=== PATIENT | female | born 1980 | race Caucasian/White ===

== ENCOUNTER 2017-03-18 12:09 | Emergency (ER) | payer OTHER ==
[~2017-03-18 12:09] MED LIST: AMOXICILLIN500 MG PO; ANAPROX DS550 MG PO; AUGMENTIN 875 M1 TAB PO; AUGMENTIN 875875 MG PO; BENADRYL25 MG PO; CIPRO250 MG PO; CLARITIN10 MG PO; COLACE50 MG PO; CORTISPORIN 1%-10 M1 OT; FLONASE 0.05% 121 EA NAS; GLYCOLAX17 GM/DOSE PO; GOOD SENSE ALLE10 MG PO; MACROBID100 M1 PO; MOTRIN800 MG PO; PANTOPRAZOLE SOD DR; PREDNISONE10 MG PO; PYRIDIUM200 MG PO; SEA SOFT MIST 445 ML NAS; SUBUTEX8 M1 PO; SUBUTEX8 M1 SL; TYLENOL325 M1 PO; TYLENOL500 MG PO; ZOFRAN ODT4 MG SL; ZOFRAN4 MG PO; ZYRTEC10 M2 PO
[2017-03-18] MEDS ORDERED: LATU20TA PO (12:10)
[2017-03-18 12:39] LABS: BASO # 0.1 10*3/uL (0.0-0.1); BASO % 0.6 % (0.0-1.0); EOS # 0.3 10*3/uL (0.0-0.4); EOS % 3.9 % (1.0-4.0); HEMATOCRIT 40.9 % (37.0-47.0); HEMOGLOBIN 13.7 g/dl (12.0-16.0); LYMPH # 2.4 10*3/uL (1.3-4.4); LYMPH % 29.6 % (27.0-41.0); MEAN CELL VOLUME 88.9 fl (81.0-99.0); MEAN CORPUSCULAR HGB 29.8 pg (27.0-31.0); MEAN CORPUSCULAR HGB CONC 33.5 g/dl (33.0-37.0); MEAN PLATELET VOLUME 10.1 fl (9.6-12.3); MONO # 0.5 10*3/uL (0.1-1.0); MONO % 6.3 % (3.0-9.0); NEUT # 4.9 10*3/uL (2.3-7.9); NEUT % 59.4 % (47.0-73.0); PLATELET COUNT AUTOMATED 227 10*3/uL (130-400); RED CELL DISTRI WIDTH 12.7 % (0-14.5); WHITE BLOOD COUNT 8.2 10*3/uL (4.8-10.8)
[2017-03-18 13:01] LABS: ALBUMIN 3.5 gm/dl (3.1-4.5); ALKALINE PHOSPHATASE 66 U/L (45-117); BILIRUBIN, TOTAL 0.2 mg/dl (0.2-1.0); BUN 12 mg/dl (7-24); CARBON DIOXIDE 27 mmol/L (21-32); CHLORIDE 109 mmol/L (98-107); EST GLOM FILT AFRICAN AMERICAN > 60 ml/min; GLUCOSE 99 mg/dL (65-99); SGOT/AST 16 IU/L (3-35); SGPT/ALT 20 U/L (12-78); SODIUM 144 mmol/L (136-145); TOTAL PROTEIN 6.8 gm/dL (6.4-8.2)
[2017-03-18] MEDS ORDERED: PREDNISONE10 MG PO (13:45)
[2017-03-18] MEDS ORDERED: VIBRAMYCIN100 MG PO (13:45)
== END 2017-03-18 13:49 | disposition home or self-care (01) ==
LOC: ED 12:09
PROVIDERS: Registered Nurse
DX: G43.909 Migraine, unspecified, not intractable, without status migrainosus (principal); J20.9 Acute bronchitis, unspecified; F17.210 Nicotine dependence, cigarettes, uncomplicated; Z88.1 Allergy status to other antibiotic agents; Z79.899 Other long term (current) drug therapy; Z88.8 Allergy status to other drugs, medicaments and biological substances

== ENCOUNTER 2019-07-26 12:59 | Emergency (ER) | payer OTHER ==
[~2019-07-26] VITALS: Ht 157.4 cm; Wt 72.6 kg
[~2019-07-26 12:59] MED LIST changes: +LATU20TA PO; +VIBRAMYCIN100 MG PO
[2019-07-26 14:17] LABS: HEMATOCRIT 43.4 % (37.0-47.0); HEMOGLOBIN 14.4 g/dl (12.0-16.0); MEAN CELL VOLUME 92.1 fl (81.0-99.0); MEAN CORPUSCULAR HGB 30.6 pg (27.0-31.0); MEAN CORPUSCULAR HGB CONC 33.2 g/dl (33.0-37.0); MEAN PLATELET VOLUME 9.9 fl (9.6-12.3); PLATELET COUNT AUTOMATED 278 10*3/uL (130-400); RED BLOOD COUNT 4.71 10*6/uL (4.10-5.10); RED CELL DISTRI WIDTH 12.4 % (0-14.5); WHITE BLOOD COUNT 6.9 10*3/uL (4.8-10.8)
[2019-07-26 14:31] LABS: ALBUMIN 3.3 gm/dl (3.1-4.5); ALKALINE PHOSPHATASE 61 U/L (45-117); BUN 6 mg/dl (7-24); CHLORIDE 109 mmol/L (98-107); CREATININE 0.76 mg/dL (0.55-1.02); POTASSIUM 3.5 mmol/L (3.5-5.1); SGOT/AST 14 IU/L (3-35); SGPT/ALT 18 U/L (12-78); SODIUM 143 mmol/L (136-145); TOTAL PROTEIN 6.8 gm/dL (6.4-8.2)
[2019-07-26 14:35] LABS: PLATELET SUFFICIENCY NORMAL (NORMAL); TOTAL CELLS COUNTED 100 #CELLS
[2019-07-26] MEDS ORDERED: CLINDAMYCIN HC300 MG PO (15:20)
== END 2019-07-26 15:46 | disposition home or self-care (01) ==
LOC: ED 12:59
PROVIDERS: Nurse Practitioner Family
DX: L02.414 Cutaneous abscess of left upper limb (principal); Z88.1 Allergy status to other antibiotic agents; Z88.2 Allergy status to sulfonamides; Z79.2 Long term (current) use of antibiotics; Z79.899 Other long term (current) drug therapy; Z90.49 Acquired absence of other specified parts of digestive tract

== ENCOUNTER 2020-09-27 14:18 | Emergency (ER) | payer OTHER ==
[~2020-09-27] VITALS: Wt 68.0 kg
[~2020-09-27 14:18] MED LIST changes: +CLINDAMYCIN HC300 MG PO
[2020-09-27] MEDS ORDERED: KENALOG 0.1%80 GM T (15:25)
== END 2020-09-27 15:18 | disposition home or self-care (01) ==
LOC: ED 14:18
DX: L25.9 Unspecified contact dermatitis, unspecified cause (principal); Z88.2 Allergy status to sulfonamides; Z88.8 Allergy status to other drugs, medicaments and biological substances

== ENCOUNTER 2022-03-04 20:17 | Emergency (ER) | payer OTHER ==
[~2022-03-04] VITALS: Ht 157.4 cm; Wt 90.3 kg
[~2022-03-04 20:17] MED LIST changes: +KENALOG 0.1%80 GM T
[2022-03-04 21:09] LABS: BASO # 0.1 10*3/uL (0.0-0.1); BASO % 0.4 % (0.0-1.0); EOS # 0.3 10*3/uL (0.0-0.4); EOS % 2.7 % (1.0-4.0); HEMATOCRIT 31.5 % (37.0-47.0); LYMPH # 2.7 10*3/uL (1.3-4.4); LYMPH % 22.6 % (27.0-41.0); MEAN CORPUSCULAR HGB 30.1 pg (27.0-31.0); MEAN PLATELET VOLUME 9.1 fl (9.6-12.3); MONO # 0.9 10*3/uL (0.1-1.0); MONO % 7.4 % (3.0-9.0); NEUT # 7.7 10*3/uL (2.3-7.9); NEUT % 65.1 % (47.0-73.0); NUCLEATED RED BLOOD CELL 0.3 % (0.0-0.0); PLATELET COUNT AUTOMATED 378 10*3/uL (130-400); RED BLOOD COUNT 3.46 10*6/uL (4.10-5.10); RED CELL DISTRI WIDTH 13.3 % (0-14.5); WHITE BLOOD COUNT 11.8 10*3/uL (4.8-10.8)
[2022-03-04 21:24] LABS: ALKALINE PHOSPHATASE 80 U/L (45-117); BUN 10 mg/dl (7-24); CHLORIDE 113 mmol/L (98-107); CREATININE 0.97 mg/dL (0.55-1.02); POTASSIUM 3.5 mmol/L (3.5-5.1); SGOT/AST 11 IU/L (3-35); SGPT/ALT 25 U/L (12-78); SODIUM 145 mmol/L (136-145); TOTAL PROTEIN 5.5 gm/dL (6.4-8.2)
[2022-03-04 23:08] LABS: BILIRUBIN Negative (Negative); BLOOD Negative (Negative); CLARITY Clear (Clear); COLOR Yellow (Yellow); GLUCOSE Negative (Negative); KETONE Negative (Negative); LEUKO ESTERASE Negative (Negative); NITRITE Negative (Negative)
[2022-03-04 23:15] LABS: EPITHELIAL CELLS 16-20
== END 2022-03-04 23:38 | disposition home or self-care (01) ==
LOC: ED 20:17
PROVIDERS: Physician Assistant
DX: O90.89 Other complications of the puerperium, not elsewhere classified (principal); R60.0 Localized edema; F17.200 Nicotine dependence, unspecified, uncomplicated; Z88.1 Allergy status to other antibiotic agents; Z90.49 Acquired absence of other specified parts of digestive tract

== ENCOUNTER 2025-09-10 08:55 | Inpatient (IN) | payer OTHER ==
[~2025-09-10] VITALS: Ht 160 cm; Wt 90.7 kg
[2025-09-10] VITALS (7 sets, daily range): BP systolic 89–177; BP diastolic 40–106
[2025-09-10] MEDS ORDERED: SODIUM CHLORIDE 0.9% 1,000 ML IV ONE ×3 (09:10→12:00)
[2025-09-10 09:42] LABS: BASO # 0.1 10*3/uL (0.0-0.1); BASO % 0.4 % (0.0-1.0); EOS # 0.2 10*3/uL (0.0-0.4); EOS % 1.6 % (1.0-4.0); MEAN CELL VOLUME 91.3 fl (81.0-99.0); MEAN CORPUSCULAR HGB 30.1 pg (27.0-31.0); MEAN PLATELET VOLUME 10.0 fl (9.6-12.3); MONO # 1.1 10*3/uL (0.1-1.0); MONO % 8.0 % (3.0-9.0); NEUT # 10.2 10*3/uL (2.3-7.9); NEUT % 71.3 % (47.0-73.0); NUCLEATED RED BLOOD CELL 0.0 % (0.0-0.0); NUCLEATED RED BLOOD CELL 0.0 10*3/uL (0.0-0.0); PLATELET COUNT AUTOMATED 273 10*3/uL (130-400); RED CELL DISTRI WIDTH 13.2 % (0-14.5)
[2025-09-10 10:07] LABS: BUN 33.0 mg/dl (9-23); SGPT/ALT 76.0 U/L (5-49)
[2025-09-10 11:08] LABS: BILIRUBIN Negative (Negative); BLOOD Negative (Negative); CLARITY Clear (Clear); COLOR Yellow (Yellow); KETONE Trace (Negative); LEUKO ESTERASE Trace (Negative); NITRITE Negative (Negative); PH 5.5 (4.5-8.0); SPECIFIC GRAVITY 1.015 (1.001-1.030); UROBILINOGEN 0.2 E.U./dl (0.0-1.0)
[2025-09-10 11:15] LABS: URINE AMPHETAMINES Positive (1000ng/ml); URINE BARBITURATES Negative (200ng/ml); URINE BENZODIAZEPINES Positive (200ng/ml); URINE CANNABINOIDS (THC) Negative (50ng/ml); URINE COCAINE Positive (300ng/ml); URINE METHADONE Positive (300ng/ml); URINE OPIATES Negative (300ng/ml); URINE PHENCYCLIDINE Negative (25ng/ml)
[2025-09-10 11:25] LABS: WBC 21-30 wbc/hpf (0-5)
[2025-09-10 11:26] LABS: BACTERIA 2+
[2025-09-10] MEDS ORDERED: diazePAM 10 MG/2 ML SYR IV ONE (12:00)
[2025-09-10] MEDS ORDERED: BISACODYL 10 MG SUPP R PRN (12:05)
[2025-09-10] MEDS ORDERED: ACETAMINOPHEN 650 MG SUPP R PRN (12:05)
[2025-09-10] MEDS ORDERED: ACETAMINOPHEN 325 MG TAB PO PRN (12:05)
[2025-09-10] MEDS ORDERED: BISACODYL 5 MG TAB PO PRN (12:05)
[2025-09-10] MEDS ORDERED: HEPARIN SODIUM 5,000 UNIT/ML VIAL SC SCH (14:00)
[2025-09-10] MEDS ORDERED: Bacitracin Zinc/Polymyxin B 15 GM TUBE T SCH (18:00)
[2025-09-11] VITALS: BP 94/46
[2025-09-11 04:00] VITALS: BP 93/52
[2025-09-11 05:47] LABS: BUN 26 mg/dl (9-23); FREE T4 1.10 ng/dl (0.89-1.76); SGPT/ALT 56 U/L (5-49)
[2025-09-11 06:00] VITALS: BP 98/53
[2025-09-11 06:32] LABS: BASO # 0.0 10*3/uL (0.0-0.1); BASO % 0.5 % (0.0-1.0); EOS # 0.3 10*3/uL (0.0-0.4); EOS % 3.2 % (1.0-4.0); MEAN CELL VOLUME 94.3 fl (81.0-99.0); MEAN CORPUSCULAR HGB 30.5 pg (27.0-31.0); MEAN PLATELET VOLUME 11.1 fl (9.6-12.3); MONO # 0.7 10*3/uL (0.1-1.0); MONO % 8.7 % (3.0-9.0); NEUT # 3.4 10*3/uL (2.3-7.9); NEUT % 43.9 % (47.0-73.0); NUCLEATED RED BLOOD CELL 0.0 % (0.0-0.0); NUCLEATED RED BLOOD CELL 0.0 10*3/uL (0.0-0.0); PLATELET COUNT AUTOMATED 199 10*3/uL (130-400); RED CELL DISTRI WIDTH 13.5 % (0-14.5)
[2025-09-11 06:59] LABS: VITAMIN D, 25-HYDROXY 48.1 ng/mL (30-100)
[2025-09-11 12:00] VITALS: BP 98/51
[2025-09-11] MEDS ORDERED: METHADONE10 MG/5 M1 PO ×2 (15:59→16:00)
[2025-09-11 16:00] VITALS: BP 119/60
[2025-09-11 20:00] VITALS: BP 115/59
[2025-09-11] MEDS ORDERED: METHADONE PO SCH (22:00)
[2025-09-11] MEDS ORDERED: MED. FROM HOME 1 EACH EA PO SCH (22:00)
[2025-09-12] VITALS: BP 114/46
[2025-09-12 04:00] VITALS: BP 121/63
[2025-09-12 06:15] LABS: BASO # 0.0 10*3/uL (0.0-0.1); BASO % 0.4 % (0.0-1.0); EOS # 0.2 10*3/uL (0.0-0.4); EOS % 3.5 % (1.0-4.0); MEAN CELL VOLUME 94.0 fl (81.0-99.0); MEAN CORPUSCULAR HGB 30.7 pg (27.0-31.0); MEAN PLATELET VOLUME 11.4 fl (9.6-12.3); MONO # 0.6 10*3/uL (0.1-1.0); MONO % 9.2 % (3.0-9.0); NEUT # 3.3 10*3/uL (2.3-7.9); NEUT % 47.3 % (47.0-73.0); NUCLEATED RED BLOOD CELL 0.0 % (0.0-0.0); NUCLEATED RED BLOOD CELL 0.0 10*3/uL (0.0-0.0); PLATELET COUNT AUTOMATED 194 10*3/uL (130-400); RED CELL DISTRI WIDTH 13.5 % (0-14.5)
[2025-09-12 06:16] LABS: SGPT/ALT 45 U/L (5-49)
[2025-09-12 06:19] LABS: BUN 15 mg/dl (9-23)
[2025-09-12 08:00] VITALS: BP 113/47
[2025-09-12] MEDS ORDERED: MED. FROM HOME 1 EACH EA PO SCH (10:00)
== END 2025-09-12 12:45 | disposition home or self-care (01) | DRG 720 ==
LOC: ED 08:55 → EDHOLD 11:46 → ICCU 13:02
PROVIDERS: Student in an Organized Health Care Education/Training Program; ADMIT Internal Medicine; ATTEND Internal Medicine
DX: A41.9 Sepsis, unspecified organism (principal); R65.20 Severe sepsis without septic shock; N17.0 Acute kidney failure with tubular necrosis; G93.1 Anoxic brain damage, not elsewhere classified; F19.10 Other psychoactive substance abuse, uncomplicated; N30.00 Acute cystitis without hematuria; D72.821 Monocytosis (symptomatic); R74.01 Elevation of levels of liver transaminase levels; F15.10 Other stimulant abuse, uncomplicated; F20.9 Schizophrenia, unspecified; R94.31 Abnormal electrocardiogram [ECG] [EKG]; F14.10 Cocaine abuse, uncomplicated; Z88.1 Allergy status to other antibiotic agents; Z88.2 Allergy status to sulfonamides